=== PATIENT | male | born 1930 | race Two or more races ===

== ENCOUNTER 2016-05-28 08:33 | Emergency (ER) | payer OTHER ==
[~2016-05-28] VITALS: Ht 165.1 cm; Wt 90.7 kg
[2016-05-28 09:06] LABS: BASOPHILS # (AUTO) 0.1 /CMM (0.0-0.2); BASOPHILS % (AUTO) 0.6 % (0.0-2.0); DIFF TOTAL % 100 %; HEMATOCRIT 26 % (39-51); HEMOGLOBIN 8.7 g/dL (13.5-17.5); LYMPHOCYTES # (AUTO) 1.5 /CMM (0.8-4.8); LYMPHOCYTES % (AUTO) 12.7 % (20.0-44.0); MEAN CORPUSCULAR HEMOGLOBIN 33 PG (26.0-33.0); MEAN CORPUSCULAR HGB CONC 34 g/dl (31.0-36.0); MEAN CORPUSCULAR VOLUME 97 fL (80-96); MONOCYTES # (AUTO) 1.2 /CMM (0.1-1.30); MONOCYTES % (AUTO) 10.4 % (2.0-12.0); NEUTROPHILS # (AUTO) 8.8 /CMM (1.8-8.9); NEUTROPHILS % (AUTO) 76.3 % (43.0-81.0); PLATELET COUNT (AUTO) 198 /CMM (150-450); RED BLOOD CELL COUNT(AUTO) 2.66 MIL/uL (4.5-6.0); WHITE BLOOD COUNT (AUTO) 11.5 K/uL (4.3-11.0)
[2016-05-28 09:22] LABS: ALBUMIN 1.7 g/dL (3.4-5.0); BILIRUBIN,DIRECT 0.2 mg/dL (0.0-0.2); BILIRUBIN,TOTAL 0.4 mg/dL (0.2-1.0); CALCIUM, SERUM 7.8 mg/dL (8.5-10.1); CREATININE 2.3 mg/dL (0.6-1.3); INDIRECT BILIRUBIN 0.2 mg/dL (0.0-1.1); POTASSIUM 4.3 mmol/L (3.5-5.1); TOTAL PROTEIN, SERUM 5.1 g/dL (6.4-8.2)
[2016-05-28 09:28] LABS: INR 1.02 (0.87-1.13)
[2016-05-28 09:34] LABS: BAND % (MANUAL) 1 % (0.0-5.0); EOSINOPHILS % (MANUAL) 1 % (0-4); LYMPHOCYTES % (MANUAL) 15 % (16-48); PLATELET ESTIMATE ADEQUATE
[2016-05-28 09:35] LABS: ANISOCYTOSIS 1+
[2016-05-28 09:48] LABS: TROPONIN I 0.339 ng/mL (0.00-0.056)
[2016-05-28] MEDS ORDERED: FUROSEMIDE 40 MG/4 ML VIAL IV ONE (10:00)
[2016-05-28] MEDS ORDERED: ASPIRIN 325 MG TABLET PO ONE (10:00)
[2016-05-28] MEDS ORDERED: ASPIRIN 325 MG TABLET ONE (10:02)
[2016-05-28] MEDS ORDERED: FUROSEMIDE 40 MG/4 ML VIAL ONE (10:02)
[2016-05-28 11:57] VITALS: BP 123/59
== END 2016-05-28 13:38 | disposition short-term general hospital (02) ==
LOC: ER 08:34
DX: I21.4 Non-ST elevation (NSTEMI) myocardial infarction (principal); I50.9 Heart failure, unspecified; E87.1 Hypo-osmolality and hyponatremia; N28.9 Disorder of kidney and ureter, unspecified; I10 Essential (primary) hypertension; K21.9 Gastro-esophageal reflux disease without esophagitis; N40.0 Benign prostatic hyperplasia without lower urinary tract symptoms
CPT/HCPCS: 36415; 71010; 80048; 80076; 83690; 83880; 84484; 85025; 85730; 87081; 93005; 96374; 99291; A4606; J1940; Z7610